=== PATIENT | female | born 1990 | race African-American/Black ===

== ENCOUNTER 2019-07-19 23:44 | Emergency (ER) | payer SELFPAY ==
[~2019-07-19] VITALS: Ht 180.3 cm; Wt 186.0 kg
[2019-07-20] MEDS ORDERED: EPINEPHrine 1 MG/ML VIAL ONE (00:04)
--- NOTE | 2019-07-20 00:11 | PHYS DOC ---
Adult General Chief Complaint Chief Complaint: ALLERGIC REACTION HPI HPI 29-year-old female presents to the emergency department with complaints of allergic reaction. Patient states she is allergic to bananas, she on her she bar approximately 1 hour prior to her arrival. She has no allergy to peanuts that she is aware of. She complains of shortness breath, itching, anxiety, nausea. She has some swelling to her face appreciated, no oral mucosal swelling appreciated on examination. Patient states she overall does not feel well. Nothing makes her symptoms worse, nothing makes her symptoms better on exam. Patient denies chest pain, headache, visual change. Review of Systems Review of Systems Constitutional: Denies fever or chills [] Eyes: Denies change in visual acuity, redness, or eye pain [] HENT: facial swelling Respiratory: SOB Cardiovascular: No additional information not addressed in HPI [] GI: Denies abdominal pain, + nausea, vomiting, no bloody stools or diarrhea [] : Denies dysuria or hematuria [] Integument: itching Neurologic: Denies headache, focal weakness or sensory changes [] All other systems were reviewed and found to be within normal limits, except as documented in this note. Current Medications Current Medications Current Medications Medications (Trade) Dose Ordered Sig/Sarah Start Time Stop Time Status Last Admin Dose Admin Albuterol/ Ipratropium (Duoneb) 3 ml 1X ONCE 07/20/19 00:30 07/20/19 00:31 DC 07/20/19 00:27 3 ML Diphenhydramine HCl (Benadryl) 50 mg 1X ONCE 07/20/19 00:15 07/20/19 00:16 DC 07/20/19 00:13 50 MG Epinephrine HCl (Adrenalin) 1 mg STK-MED ONCE 07/20/19 00:04 07/20/19 00:05 DC Famotidine (Pepcid Vial) 20 mg 1X ONCE 07/20/19 00:15 07/20/19 00:16 DC 07/20/19 00:12 20 MG Methylprednisolone Sodium Succinate (SOLU-Medrol 125MG VIAL) 125 mg 1X ONCE 07/20/19 00:15 07/20/19 00:16 DC 07/20/19 00:12 125 MG Potassium Chloride (Klor-Con) 40 meq 1X ONCE 07/20/19 02:00 07/20/19 02:15 DC 07/20/19 02:19 40 MEQ Sodium Chloride 1,000 ml @ 1,000 mls/hr 1X ONCE 07/20/19 00:15 07/20/19 01:14 DC 07/20/19 00:08 1,000 MLS/HR Allergies Allergies Allergies Coded Allergies Type Severity Reaction Last Updated Verified banana Allergy Unknown 07/20/19 Yes Physical Exam Physical Exam Constitutional: Well developed, well nourished, mild distress, non-toxic appearance. [] HENT: Normocephalic, atraumatic, bilateral external ears normal, oropharynx moist, no oral exudates, nose normal. no evidence of oral mucosal swelling appreciated on exam, no lip swelling appreciated[] Eyes: PERRLA, EOMI, conjunctiva normal, no discharge, eye swelling appreciated, swelling to face. [] Neck: Normal range of motion, no tenderness, supple, no stridor. [] Cardiovascular:Heart rate regular rhythm, no murmur [] Lungs & Thorax: Bilateral breath sounds clear to auscultation [] Abdomen: Bowel sounds normal, soft, no tenderness, no masses, no pulsatile masses. [] Skin: Warm, dry, no erythema, no rash - itching Extremities: No tenderness, no edema. [] Neurologic: Alert and oriented X 3, no focal deficits noted. [] Psychologic: Affect normal, judgement normal, mood normal. [] Current Patient Data Vital Signs Vital Signs Date Time Temp Pulse Resp B/P (MAP) Pulse Ox O2 Delivery O2 Flow Rate FiO2 07/20/19 02:00 96 16 159/67 (97) 99 Room Air 07/19/19 23:56 97.9 97.9 Lab Values Laboratory Tests Test 07/20/19 00:10 White Blood Count 7.0 x10^3/uL (4.0-11.0) Red Blood Count 4.50 x10^6/uL (3.50-5.40) Hemoglobin 11.1 g/dL (12.0-15.5) L Hematocrit 35.4 % (36.0-47.0) L Mean Corpuscular Volume 79 fL (79-100) Mean Corpuscular Hemoglobin 25 pg (25-35) Mean Corpuscular Hemoglobin Concent 31 g/dL (31-37) Red Cell Distribution Width 16.9 % (11.5-14.5) H Platelet Count 245 x10^3/uL (140-400) Neutrophils (%) (Auto) 23 % (31-73) L Lymphocytes (%) (Auto) 67 % (24-48) H Monocytes (%) (Auto) 8 % (0-9) Eosinophils (%) (Auto) 3 % (0-3) Basophils (%) (Auto) 0 % (0-3) Neutrophils # (Auto) 1.6 x10^3/uL (1.8-7.7) L Lymphocytes # (Auto) 4.7 x10^3/uL (1.0-4.8) Monocytes # (Auto) 0.5 x10^3/uL (0.0-1.1) Eosinophils # (Auto) 0.2 x10^3/uL (0.0-0.7) Basophils # (Auto) 0.0 x10^3/uL (0.0-0.2) Platelet Estimate Pending Sodium Level 140 mmol/L (136-145) Potassium Level 3.2 mmol/L (3.5-5.1) L Chloride Level 104 mmol/L (98-107) Carbon Dioxide Level 24 mmol/L (21-32) Anion Gap 12 (6-14) Blood Urea Nitrogen 15 mg/dL (7-20) Creatinine 0.9 mg/dL (0.6-1.0) Estimated GFR (Cockcroft-Gault) 90.2 BUN/Creatinine Ratio 17 (6-20) Glucose Level 138 mg/dL (70-99) H Calcium Level 8.7 mg/dL (8.5-10.1) Total Bilirubin 0.2 mg/dL (0.2-1.0) Aspartate Amino Transferase (AST) 19 U/L (15-37) Alanine Aminotransferase (ALT) 29 U/L (14-59) Alkaline Phosphatase 77 U/L (46-116) Total Protein 7.3 g/dL (6.4-8.2) Albumin 3.0 g/dL (3.4-5.0) L Albumin/Globulin Ratio 0.7 (1.0-1.7) L Laboratory Tests 07/20/19 00:10 Laboratory Tests 07/20/19 00:10 EKG EKG [] Radiology/Procedures Radiology/Procedures [] Course & Med Decision Making Course & Med Decision Making Pertinent Labs and Imaging studies reviewed. (See chart for details) []29-year-old female presents to the emergency department with complaints of allergic reaction. Patient states she is allergic to bananas, she on her she bar approximately 1 hour prior to her arrival. She has no allergy to peanuts that she is aware of. She complains of shortness breath, itching, anxiety, nausea. She has some swelling to her face appreciated, no oral mucosal swelling js reciated on examination. Patient states she overall does not feel well. Nothing makes her symptoms worse, nothing makes her symptoms better on exam. Patient denies chest pain, headache, visual change. Patient received 0.3mg IM epi, Solumedrol 125mg, Pepcid 20mg IV, Bendaryl 50mg IV, Duoneb Labs reviewed Reassessment - 0045, overall patient improved Will observe in the ER at this time Dragon Disclaimer Dragon Disclaimer This electronic medical record was generated, in whole or in part, using a voice recognition dictation system. Departure Departure Impression: Primary Impression: Allergic reaction Disposition: 01 HOME, SELF-CARE Condition: IMPROVED Referrals: ZENAIDA PAREKH MD (PCP) Patient Instructions: Anaphylactic Reaction, [id number] Additional Instructions: Recommend follow up with PCP 3 - 5 days Return to the ER with worsening symptoms, return of rash, itching, SOB, swelling to the face Potassium replaced in ER You received benadryl, steroids, pepcid, albuterol, epinephrine in the ER for symptoms Problem Qualifiers Primary Impression: Allergic reaction Encounter type: initial encounter Qualified Codes: T78.40XA - Allergy, unspecified, initial encounter NITO STREETER MD Jul 20, 2019 00:11
[2019-07-20] MEDS ORDERED: methylPREDNISolone SOD SUCC PF 125 MG/2 ML VIAL. IV ONE (00:15)
[2019-07-20] MEDS ORDERED: FAMOTIDINE 20 MG/2 ML VIAL IVP ONE (00:15)
[2019-07-20] MEDS ORDERED: diphenhydrAMINE 50 MG/ML VIAL IVP ONE (00:15)
[2019-07-20] MEDS ORDERED: IV NORMAL SALINE 1000ML BAG 1,000 ML IV ONE (00:15)
[2019-07-20] MEDS ORDERED: EPINEPHrine 1 MG/ML VIAL SQ ONE (00:15)
[2019-07-20 00:24] LABS: BASO % 0 % (0-3); EOS # 0.2 x10^3/uL (0.0-0.7); EOS % 3 % (0-3); HEMATOCRIT 35.4 % (36.0-47.0); HEMOGLOBIN 11.1 g/dL (12.0-15.5); LYMPH # 4.7 x10^3/uL (1.0-4.8); LYMPH % 67 % (24-48); MEAN CORPUSCULAR HEMOGLOBIN 25 pg (25-35); MEAN CORPUSCULAR HGB CONC 31 g/dL (31-37); MEAN CORPUSCULAR VOLUME 79 fL (79-100); MONO # 0.5 x10^3/uL (0.0-1.1); MONO % 8 % (0-9); NEUT # 1.6 x10^3/uL (1.8-7.7); NEUT % 23 % (31-73); PLATELET COUNT 245 x10^3/uL (140-400); RED CELL DISTRIBUTION WIDTH 16.9 % (11.5-14.5)
[2019-07-20] MEDS ORDERED: IPRATRPIUM/ALBUTEROL 0.5/2.5MG 3 ML NEBU. NEB ONE (00:30)
[2019-07-20 00:33] LABS: CALCIUM 8.7 mg/dL (8.5-10.1); CREATININE 0.9 mg/dL (0.6-1.0); GFR 90.2; POTASSIUM 3.2 mmol/L (3.5-5.1)
[2019-07-20 00:38] LABS: ALBUMIN/GLOBULIN RATIO 0.7 (1.0-1.7); TOTAL BILIRUBIN 0.2 mg/dL (0.2-1.0); TOTAL PROTEIN 7.3 g/dL (6.4-8.2)
[2019-07-20 02:00] VITALS: BP 159/67
[2019-07-20] MEDS ORDERED: POTASSIUM CHLORIDE 20 MEQ TABLET.ER. PO ONE (02:00)
[2019-07-20 04:57] LABS: % ATYL 7 % (0-0); % BANDS 1 % (0-9); % EOS 1 % (0-5); % LYMPHS 70 % (24-48); % MONOS 2 % (0-10); % SEGS 19 % (35-66); HYPOCHROMIA SLIGHT; PLT ESTIMATE ADEQUATE (ADEQUATE)
== END 2019-07-20 02:43 | disposition home or self-care (01) ==
LOC: ER 23:44
DX: T78.49XA Other allergy, initial encounter (principal); T78.1XXA Other adverse food reactions, not elsewhere classified, initial encounter; X58.XXXA Exposure to other specified factors, initial encounter; R06.02 Shortness of breath; R60.0 Localized edema; R11.0 Nausea; Z91.018 Allergy to other foods; Z79.899 Other long term (current) drug therapy
CPT/HCPCS: 36415; 80053; 85007; 85025; 94640; 96372; 96374; 96375; 99285; J0171; J1200; J2930; J3490; J7030; J7620

== ENCOUNTER 2020-08-02 19:46 | Emergency (ER) | payer SELFPAY ==
[~2020-08-02] VITALS: Ht 180.3 cm; Wt 163.6 kg
--- NOTE | 2020-08-02 20:12 | PHYS DOC ---
Past Medical History Past Medical History: Other Additional Past Medical Histor: ALLERGIC REACTION TO BANANAS (NADEEM VALLE APRN) Past Surgical History: No Surgical History (NADEEM VALLE APRN) Smoking Status: Current Every Day Smoker Alcohol Use: Occasionally (NADEEM VALLE APRN) General Adult EDM: Chief Complaint: ALLERGIC REACTION HPI: HPI: Patient is a 30 year old female who presents with a day burrito from a new restaurant and began having itching from head to toe and itching of her mouth and some swelling around her eyes. She states she got home took (4) 25 mg Benadryl. She states that she does have allergic reaction to nuts and bananas but she did not eat anything with that in it. Denies any pain, shortness of breath, chest pain, swelling of the throat, dizziness, headache, syncope, abdominal pain, nausea, vomiting, cough. (NADEEM VALLE APRN) Review of Systems: Review of Systems: Constitutional: Denies fever or chills. [] Eyes: Denies change in visual acuity. + Swelling around eyes [] HENT: Denies nasal congestion or sore throat. + Facial swelling [] Respiratory: Denies cough or shortness of breath. [] Cardiovascular: Denies chest pain or edema. [] GI: Denies abdominal pain, nausea, vomiting, bloody stools or diarrhea. [] : Denies dysuria. [] Musculoskeletal: Denies back pain or joint pain. [] Integument: Denies rash. + Itching head to toe [] Neurologic: Denies headache, focal weakness or sensory changes. [] Endocrine: Denies polyuria or polydipsia. [] Lymphatic: Denies swollen glands. [] Psychiatric: Denies depression or anxiety. [] (NADEEM VALLE APRN) Heart Score: Risk Factors: Risk Factors: DM, Current or recent (<one month) smoker, HTN, HLP, family history of CAD, obesity. Risk Scores: Score 0 - 3: 2.5% MACE over next 6 weeks - Discharge Home Score 4 - 6: 20.3% MACE over next 6 weeks - Admit for Clinical Observation Score 7 - 10: 72.7% MACE over next 6 weeks - Early Invasive Strategies (NADEEM VALLE APRN) Allergies: Allergies: Allergies Coded Allergies Type Severity Reaction Last Updated Verified banana Allergy Unknown 07/20/19 Yes (NADEEM VALLE APRN) Physical Exam: PE: Constitutional: Well developed, well nourished, no acute distress, non-toxic appearance. [] HENT: Normocephalic, atraumatic, bilateral external ears normal, oropharynx moist, no oral exudates, nose normal. [] Eyes: PERRLA, EOMI, conjunctiva normal, no discharge. [] Neck: Normal range of motion, no tenderness, supple, no stridor. [] Cardiovascular:Heart rate regular rhythm, no murmur [] Lungs & Thorax: Bilateral breath sounds clear to auscultation [] Abdomen: Bowel sounds normal, soft, no tenderness, no masses, no pulsatile masses. [] Skin: Warm, dry, no erythema, no rash. [] Back: No tenderness, no CVA tenderness. [] Extremities: No tenderness, no cyanosis, no clubbing, ROM intact, no edema. [] Neurologic: Alert and oriented X 3, normal motor function, normal sensory function, no focal deficits noted. [] Psychologic: Affect normal, judgement normal, mood normal. Normal physical exam [] (NADEEM VALLE APRN) EKG: EKG: [] (NADEEM VALLE APRN) Radiology/Procedures: Radiology/Procedures: [] (NADEEM VALLE APRN) Course & Med Decision Making: Course & Med Decision Making Pertinent Labs and Imaging studies reviewed. (See chart for details) See HPI. Alert and oriented x4. Ambulatory with a steady gait. There is no facial swelling, no uvula swelling, no tongue swelling, no hives, no rash, no swelling of the eyes. Patient is very anxious. Lungs are clear to auscultation all lobes. Speaks in full complete sentences. Skin pink warm and dry. Patient is given IV Solu-Medrol and Pepcid. Patient took the Benadryl as stated in my HPI 30 minutes prior to arrival. 1 hour after medications have been given patient is feeling much better but she is very drowsy due to all the Benadryl she took. Vital signs are stable. Heart rate 81, 100% on room air. Patient states she is feeling much better she is just sleepy. Patient continues to have no physical signs of a allergic reaction. Patient is discharged home. [] (NADEEM VALLE APRN) Treva Disclaimer: Treva Disclaimer: This electronic medical record was generated, in whole or in part, using a voice recognition dictation system. (NADEEM VALLE APRN) Departure Departure Impression: Primary Impression: Allergic reaction Qualified Codes: T78.40XA - Allergy, unspecified, initial encounter Disposition: DC HOME SELF CARE/HOMELESS Condition: STABLE Referrals: NO PCP (PCP) Patient Instructions: Allergies, Generic, Epinephrine injection (Auto- injector), Hives, [id number] Additional Instructions: Follow-up with primary care provider if needed. Take medications as prescribed and with food. Only use EpiPen if you begin having throat swelling. If you use EpiPen you must call 911. Scripts Epinephrine (EPIPEN 2-LULA) 0.3 Mg/0.3 Ml Auto.injct 0.3 MG IJ ONCE PRN for ANAPHYLAXIS, #1 SYR ONLY USE FOR ANAPHYLAXIS AND THEN CALL 911 Prov: NADEEM VALLE APRN 08/02/20 Methylprednisolone (MEDROL) 4 Mg Tab.ds.pk 1 PKG PO UD, #1 PKG Prov: NADEEM VALLE APRN 08/02/20 Famotidine (PEPCID) 20 Mg Tablet 20 MG PO BID for 5 Days, #10 TAB Prov: NADEEM VALLE APRN 08/02/20 Diphenhydramine Hcl (BENADRYL) 25 Mg Capsule 1 CAP PO Q6HRS for 5 Days, #20 CAP 0 Refills Prov: NADEEM VALLE APRN 08/02/20 Attending Signature Attending Signature I have reviewed the PA/GLASS LINED TANK REPAIRER's note and plan of care. I was available for consultation as needed during the patient's visit in the emergency department. I agree with the clinical impression, plan, and disposition. (SILVINO SALAS DO) NADEEM VALLE APRN Aug 02, 2020 20:12 SILVINO SALAS DO Aug 03, 2020 01:13
[2020-08-02] MEDS ORDERED: FAMOTIDINE 20 MG/2 ML VIAL IVP ONE (20:15)
[2020-08-02] MEDS ORDERED: methylPREDNISolone SOD SUCC PF 125 MG/2 ML VIAL. IV ONE (20:15)
[2020-08-02] MEDS ORDERED: FAMO-63 PO (21:18)
[2020-08-02] MEDS ORDERED: DIPH25CA58 PO (21:18)
[2020-08-02] MEDS ORDERED: EPIPEN 2-P0.3 MG/0.3 IJ (21:18)
[2020-08-02] MEDS ORDERED: METH4TAB2 PO (21:18)
[2020-08-02 21:34] VITALS: BP 158/98
== END 2020-08-02 21:43 | disposition home or self-care (01) ==
LOC: ER 19:46
DX: R60.0 Localized edema (principal); T45.0X5A Adverse effect of antiallergic and antiemetic drugs, initial encounter; L29.9 Pruritus, unspecified; F17.200 Nicotine dependence, unspecified, uncomplicated; Z91.018 Allergy to other foods; Y92.89 Other specified places as the place of occurrence of the external cause
CPT/HCPCS: 96374; 96375; 99284; J2930; J3490